=== PATIENT | female | born 1965 | race Caucasian/White ===

== ENCOUNTER 2017-01-17 02:12 | Emergency (ER) | payer MEDICAID ==
[2017-01-17 02:25] VITALS: BP 148/105; PULSE 79; RESP 17; TEMP 97.8; O2SAT 98
--- NOTE | 2017-01-17 02:33 | ED PDOC ---
HPI: Skin/Bite Injury Time Seen by Provider: 01/17/17 02:23 Chief Complaint (Nursing): Abnormal Skin Integrity Chief Complaint (Provider): Laceration History Per: Patient Additional Complaint(s): Pt is a 51 yo female, PMH of HTN, presents to ED for evaluation of a laceration she developed to her left middle finger around 17:00. Pt slipped while cutting cooked chicken. Pt reports she was unable to get the bleeding to stop. Pavan VAUGHN, Dec 2014 Past Medical History Reviewed: Nursing Documentation, Vital Signs Vital Signs: Last Vital Signs Temp 97.8 F 01/17/17 02:22 Pulse 79 01/17/17 02:22 Resp 17 01/17/17 02:22 BP 148/105 H 01/17/17 02:22 Pulse Ox 98 01/17/17 02:47 - Medical History PMH: HTN - Surgical History Surgical History: No Surg Hx - Family History Family History: States: No Known Family Hx - Living Arrangements Living Arrangements: With Family - Social History Current smoker - smoking cessation education provided: No Alcohol: Social Drugs: Denies - Allergies Allergies/Adverse Reactions: Allergies Allergy/AdvReac Type Severity Reaction Status Date / Time No Known Allergies Allergy Verified 01/17/17 02:25 Review of Systems ROS Statement: Except As Marked, All Systems Reviewed And Found Negative Skin: Positive for: Other (laceration) Physical Exam - Reviewed Nursing Documentation Reviewed: Yes Vital Signs Reviewed: Yes - Physical Exam Appears: Positive for: Well, Non-toxic, No Acute Distress Head Exam: Positive for: ATRAUMATIC, NORMAL INSPECTION, NORMOCEPHALIC Skin: Positive for: Normal Color, Warm, DRY Eye Exam: Positive for: EOMI, Normal appearance, PERRL ENT: Positive for: Normal ENT Inspection Neck: Positive for: Normal, Painless ROM Cardiovascular/Chest: Positive for: Regular Rate, Rhythm Respiratory: Positive for: CNT, Normal Breath Sounds Gastrointestinal/Abdominal: Positive for: Normal Exam, Bowel Sounds, Soft Back: Positive for: Normal Inspection Extremity: Positive for: Normal ROM Neurologic/Psych: Positive for: Alert Comments: small 2 cm laceration to right middle digit, horizontally extending from fingertip pulp and stops and nail edge. - ECG O2 Sat by Pulse Oximetry: 98 Medical Decision Making Medical Decision Making: left 3rd digit, 3 sutures placed Wound care discussed Disposition - Clinical Impression Clinical Impression: Laceration - Disposition Referrals: Caridad Deleon MD [Primary Care Provider] - Disposition: Routine/Home Disposition Time: 03:27 Condition: GOOD Additional Instructions: Suture removal in 7-10 days Instructions: Care For Your Stitches (ED) Forms: [facility] ED School/Work Excuse - POA Present On Arrival: None Laceration - Laceration Repair No standard instances Wound Length (In cm): 3 Description Of Wound: Linear Wound Cleansed With: Sterile Saline Anesthesia: Lidocaine 2% Wound Examination: Irrigated With Saline Wound Closure: Suture Suture Technique And Material Used: Interrupted (3 sutures in total), Nylon (5.0 ) Wound Complexity: Simple
[2017-01-17] MEDS ORDERED: Absorbable Gelatin Sponge Size 12-7 ONE (02:37)
== END 2017-01-17 03:36 | disposition home or self-care (01) ==
LOC: H.ER 02:12
DX: S61.213A Laceration without foreign body of left middle finger without damage to nail, initial encounter (principal); W26.0XXA Contact with knife, initial encounter; Y92.000 Kitchen of unspecified non-institutional (private) residence as the place of occurrence of the external cause

== ENCOUNTER 2017-04-11 13:31 | Emergency (ER) | payer MEDICAID ==
--- NOTE | 2017-04-11 14:11 | ED PDOC ---
HPI: Hypertension/Hypotension Time Seen by Provider: 04/11/17 13:44 Chief Complaint (Nursing): High Blood Pressure Chief Complaint (Provider): Swollen feet History Per: Patient History/Exam Limitations: no limitations Onset/Duration Of Symptoms: Hrs Current Symptoms Are (Timing): Better Associated Symptoms: denies: Chest Pain, Dyspnea, Dizziness, Blurred Vision, Headache Quality Of Symptoms: denies: Asymptomatic Severity: None Pain Scale Rating Of: 0 Additional Complaint(s): 51 yo F w PMHx of HTN and mild, intermittent asthma presents to ER due to BP check and mildly swollen b/l feet. It began 3-4 days ago as the outside temperature became very warm and humid, as she states it normally happens during the summer months. She denies any calf pain, palpitations, tachycardia, SOB, dyspnea, cough, fevers, or chills. As per pt, the edema would improve when she elevates her legs for extended periods of time, such as lounging on couch or readying herself for sleep. Otherwise, she denies any nausea, vomiting, diarrhea, constipation, abdominal pain, hematuria, dysuria, or other myalgias. Past Medical History Vital Signs: Last Vital Signs Temp 98 F 04/11/17 13:36 Pulse 70 04/11/17 13:36 Resp 18 04/11/17 13:36 BP 154/91 H 04/11/17 13:36 Pulse Ox 99 04/11/17 13:36 - Medical History PMH: HTN - Family History Family History: States: No Known Family Hx - Allergies Allergies/Adverse Reactions: Allergies Allergy/AdvReac Type Severity Reaction Status Date / Time No Known Allergies Allergy Verified 04/11/17 13:35 Review of Systems ROS Statement: Except As Marked, All Systems Reviewed And Found Negative (see HPI) Physical Exam - Reviewed Nursing Documentation Reviewed: Yes Vital Signs Reviewed: Yes - Physical Exam Appears: Positive for: Well, No Acute Distress Head Exam: Positive for: ATRAUMATIC, NORMOCEPHALIC Skin: Positive for: Normal Color, Warm, Dry Eye Exam: Positive for: Normal appearance, EOMI, PERRL ENT: Positive for: Other (no facial swelling, no perioral swelling, no coughing heard) Neck: Positive for: Normal, Painless ROM, Supple Cardiovascular/Chest: Positive for: Regular Rate, Rhythm. Negative for: Murmur Respiratory: Positive for: Normal Breath Sounds. Negative for: Rhonchi, Wheezing, Respiratory Distress Gastrointestinal/Abdominal: Positive for: Normal Exam, Soft. Negative for: Tenderness, Distended, Guarding Extremity: Positive for: Normal ROM, Pedal Edema (b/l lower extremity mild, non- pitting edema; extends just above malleolus ). Negative for: Calf Tenderness - ECG O2 Sat by Pulse Oximetry: 99 - Progress ED Course And Treament: 51 yo F w PMHx of HTN and mild, intermittent asthma presents to ER for BP evaluation and heat related edema -Has no complaints of any kind -Presents for BP check, as she states having a h/o elevated BPs during hot weather -Will re evaluate blood pressure after patient acclimates to the cooler ER temperature Update 1445: -Pt continues to feel fine, have no complaints -BP 137/84 -Advise to follow up w PMD in 2-3 days -Advise to hydrate well during very hot weather -Advise to keep her legs elevated as often as possible -Advise to remain in cool, indoor places as often as possible until outdoor weather cools down Disposition - Clinical Impression Clinical Impression: Edema of both feet - Patient ED Disposition Is Patient to be Admitted: No - Disposition Referrals: [facility] [place] [Outside] Disposition: Routine/Home Disposition Time: 15:00 Condition: STABLE Additional Instructions: Instructed to follow up w PMD in 2-3 days Hydrate well with 2 liters of water per day during very hot weather Keep her legs elevated as often as possible Remain in cool, indoor places as often as possible until outdoor weather cools down Return to ED if BPs worsen or edema worsens Instructions: Heat Exhaustion (ED), Leg Edema (ED)
[2017-04-11 14:32] VITALS: RESP 20
[2017-04-11 14:57] VITALS: O2SAT 99
[2017-04-11 17:09] VITALS: BP 140/70; PULSE 78; TEMP 97.6
== END 2017-04-11 17:09 | disposition home or self-care (01) ==
LOC: H.ER 13:31
DX: R60.9 Edema, unspecified (principal); I10 Essential (primary) hypertension; J45.909 Unspecified asthma, uncomplicated

== ENCOUNTER 2018-03-12 15:05 | Emergency (ER) | payer MEDICAID ==
[2018-03-12 15:22] VITALS: BP 164/90; PULSE 74; RESP 17; TEMP 98.5; O2SAT 100
--- NOTE | 2018-03-12 16:29 | ED PDOC ---
HPI: Allergic Reaction Time Seen by Provider: 03/12/18 15:33 Chief Complaint (Nursing): Abnormal Skin Integrity Chief Complaint (Provider): Abnormal Skin Integrity History Per: Patient History/Exam Limitations: no limitations Onset/Duration Of Symptoms: Days (x6) Current Symptoms Are (Timing): Still Present Additional Complaint(s): 52 year old female presents to the emergency department complaining of a pruritic, erythematous rash on both lower legs and upper left arm onset five days ago. She notes that she has not used any new detergents or creams, and states she has no history of allergic reactions. That patient also denies any chest pain, shortness of breath, or throat swelling. PMD: none provided Scribe Attestation: Documented by Irma Kebede, acting as a scribe for Mitchell Wilkinson PA-C Provider Scribe Attestation: All medical entries made by the Scribe were at my direction and personally dictated by me. I have reviewed the chart and agree that the record accurately reflects my personal performance of the history, physical exam, medical decision making, and the department course for this patient. I have also personally directed, reviewed, and agree with the discharge instructions and disposition. Past Medical History Reviewed: Historical Data, Nursing Documentation, Vital Signs Vital Signs: Last Vital Signs Temp 98.5 F 03/12/18 15:18 Pulse 74 03/12/18 15:18 Resp 17 03/12/18 15:18 BP 164/90 H 03/12/18 15:18 Pulse Ox 100 03/12/18 15:18 - Medical History PMH: Asthma, Bronchitis, HTN, Hyperlipidemia - Surgical History Other surgeries: Hysterectomy - Family History Family History: States: Unknown Family Hx - Social History Alcohol: None Drugs: Denies - Home Medications Home Medications: Ambulatory Orders Medication Instructions Recorded DiphenhydrAMINE [Benadryl] 50 mg PO Q6 PRN #30 cap 03/12/18 Triamcinolone Acetonide 0.1% 1 appl TP TID PRN #1 tube 03/12/18 [Kenalog 0.1% CREAM] - Allergies Allergies/Adverse Reactions: Allergies Allergy/AdvReac Type Severity Reaction Status Date / Time No Known Allergies Allergy Verified 04/11/17 13:35 Review of Systems ROS Statement: Except As Marked, All Systems Reviewed And Found Negative ENT: Negative for: Throat Swelling Cardiovascular: Negative for: Chest Pain Respiratory: Negative for: Shortness of Breath Skin: Positive for: Rash (pruritic erythematous rash on lower legs and on left upper arm) Physical Exam - Reviewed Nursing Documentation Reviewed: Yes Vital Signs Reviewed: Yes - Physical Exam Appears: Positive for: Well, Non-toxic, No Acute Distress Skin: Positive for: Rash (Scattered urticarial rash on bilateral lower extremities; 2 linear erythematous patches on left upper arm without vesicles, pustulates, or break in skin integrity) ENT: Positive for: Normal ENT Inspection. Negative for: Tonsillar Swelling Respiratory: Positive for: Normal Breath Sounds. Negative for: Respiratory Distress Neurologic/Psych: Positive for: Alert, Oriented. Negative for: Aphasia, Facial Droop - ECG O2 Sat by Pulse Oximetry: 100 (RA) Pulse Ox Interpretation: Normal - Progress ED Course And Treament: Offered Benadryl in ED but pt. refused. Advised to f/u with plsql developer or cold rolling coordinator for further evaluation. Disposition - Clinical Impression Clinical Impression: Contact dermatitis - Patient ED Disposition Is Patient to be Admitted: No - Disposition Referrals: [facility] [Outside] Disposition: Routine/Home Disposition Time: 15:55 Condition: STABLE Additional Instructions: Follow up with plsql developer or cold rolling coordinator for further evaluation Return to ED immediately if symptoms worsen Prescriptions: DiphenhydrAMINE [Benadryl] 50 mg PO Q6 PRN #30 cap PRN Reason: itching or rash Triamcinolone Acetonide 0.1% [Kenalog 0.1% CREAM] 1 appl TP TID PRN #1 tube PRN Reason: Rash Instructions: Contact Dermatitis (DC) Forms: [employer] (Pashto) Print Language: NIGERIEN
== END 2018-03-12 15:55 | disposition home or self-care (01) ==
LOC: H.ER 15:05
DX: L25.9 Unspecified contact dermatitis, unspecified cause (principal)